=== PATIENT | male | born 1980 | race Two or more races ===

== ENCOUNTER 2022-05-30 09:43 | Emergency (ER) | payer SELFPAY ==
[~2022-05-30] VITALS: Ht 165.1 cm; Wt 104.2 kg
[2022-05-30 11:13] VITALS: BP 121/63
[2022-05-30] MEDS ORDERED: diphenhdrAMINE HCL 50 MG/1 ML VL IM ONE (11:45)
[2022-05-30] MEDS ORDERED: KEP500T PO (11:57)
[2022-05-30] MEDS ORDERED: PER60TP TOP (11:57)
[2022-05-30] MEDS ORDERED: HYDR50CA PO (11:57)
== END 2022-05-30 12:06 | disposition home or self-care (01) ==
LOC: ER 09:43
DX: B86 Scabies (principal); Z79.899 Other long term (current) drug therapy
CPT/HCPCS: 96372; 99283; J1200